=== PATIENT | female | born 2005 | race Caucasian/White ===

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

== ENCOUNTER 2025-03-04 20:57 | Emergency (ER) | payer SELFPAY ==
[~2025-03-04] VITALS: Ht 157.4 cm; Wt 72.6 kg
[2025-03-04] MEDS ORDERED: Acetaminophen/Oxycodone 5 MG/325 MG TABLET PO ONE (21:30)
[2025-03-04] MEDS ORDERED: NAPROSYN500 MG PO (22:08)
== END 2025-03-04 22:22 | disposition home or self-care (01) ==
LOC: ED 20:57
DX: S93.401A Sprain of unspecified ligament of right ankle, initial encounter (principal); X50.1XXA Overexertion from prolonged static or awkward postures, initial encounter; Y93.89 Activity, other specified; Y92.89 Other specified places as the place of occurrence of the external cause; Y99.8 Other external cause status